=== PATIENT | female | born 1995 | race Caucasian/White ===

== ENCOUNTER 2018-09-21 17:02 | Outpatient (CLI) | payer OTHER | END 2018-09-21 17:12 | disposition home or self-care (01) | LOC: LAB 17:02 | DX: N39.0 Urinary tract infection, site not specified (principal); J11.1 Influenza due to unidentified influenza virus with other respiratory manifestations; I10 Essential (primary) hypertension ==

== ENCOUNTER 2019-08-24 01:05 | Emergency (ER) | payer OTHER ==
[~2019-08-24] VITALS: Ht 160 cm; Wt 72.6 kg
[2019-08-24] MEDS ORDERED: TIROSINT25 MCG (01:10)
[2019-08-24] MEDS ORDERED: KETO10TA2 PO (04:44)
== END 2019-08-24 05:04 | disposition home or self-care (01) ==
LOC: ER 01:05
DX: N83.291 Other ovarian cyst, right side (principal); R10.2 Pelvic and perineal pain

== ENCOUNTER → 2025-02-02 | Emergency (ER) | payer OTHER ==
[~2025-02-02] VITALS: Ht 160 cm; Wt 55.3 kg
[~2025-02-02] MED LIST: KETO10TA2 PO; LEVOTHYROXINE25 MCG PO; TIROSINT25 MCG
[2025-02-02 13:12] LABS: BASO % 0.5 % (0.1-1.2); EOS # 0.12 (0.04-0.54); EOS % 1.8 % (0.7-7.0); HEMATOCRIT 38.8 % (34.1-44.9); HEMOGLOBIN 13.2 g/dL (11.2-15.7); LYMPH # 1.32 (1.18-3.74); LYMPH % 20.2 % (19.3-53.1); MONO # 0.59 (0.24-0.82); NEUT # 4.45 (1.56-6.13); NEUT % 68.2 % (34.0-71.1); PLATELET COUNT 355 K/uL (163-369); RED CELL DISTRIBUTION WIDTH 11.7 % (11.6-14.4)
[2025-02-02 13:40] LABS: PH,URINE 7.5 (5.0-8.0); URINE APPEARANCE Clear; URINE BILIRRUBIN Negative (NEGATIVE); URINE BLOOD Negative; URINE COLOR Yellow; URINE GLUCOSE Negative (NEGATIVE); URINE KETONE Negative (NEGATIVE); URINE LEUKOCYTE Negative; URINE NITRATE Negative; URINE PROTEIN Negative (NEGATIVE); URINE UROBILINOGEN 0.2 E.U./dl
[2025-02-02 13:49] LABS: URINE BACTERIA 468.6 uL (0.0-1933); URINE EPITHELIAL CELLS 6.1 uL (0.0-38.8); URINE RBC 23.2 uL (0.0-20.8); URINE WBC 12.1 uL (0.0-23.2)
[2025-02-02 13:53] LABS: URINE CAST 0.29 uL (0.0-1.40)
[2025-02-02 14:11] LABS: ALBUMIN 4.6 gm/dL (3.4-5.0); ALKALINE PHOSPHATASE 74 U/L (50-136); ALT/SGPT 24 U/L (12-78); ANION GAP 9 (10.0-20.0); AST/SGOT 19 U/L (15-37); BILIRUBIN TOTAL 0.63 mg/dL (0.3-1.2); BLOOD UREA NITROGEN 11 mg/dL (7-18); BUN CREA RATIO 15 (7.0-25.0); CALCIUM 9.6 mg/dL (8.5-10.1); CARBON DIOXIDE 28 mEq/L (21-32); CHLORIDE 106 mmol/L (98-107); CREATININE SERUM 0.71 mg/dL (0.55-1.02); GFR 96.01; GLOBULINA 4.2 G/DL (2.4-3.5); GLUCOSE FASTING 107 mg/dL (65-100); OSMOLALITY SERUM 277 MOSM/KG (275-295); PHOSPHOKINASE CREATININE 82 U/L (26-192); POTASSIUM 4.13 mEq/L (3.5-5.1); SODIUM 139 mmol/L (136-145); TOTAL PROTEIN 8.8 gm/dL (6.4-8.2)
[2025-02-02 14:13] LABS: HCG QUANTITATIVE < 1 mUI/mL (1-3)
[2025-02-02 14:17] LABS: PHOSPHOROUS 3.3 mg/dL (2.5-4.9); TSH 1.71 uIU/mL (0.358-3.74)
== END | disposition home or self-care (01) ==
LOC: ER 11:47
PROVIDERS: General Practice; Internal Medicine
DX: R55 Syncope and collapse (principal); R53.1 Weakness; Z91.018 Allergy to other foods